=== PATIENT | female | born 1980 | race Caucasian/White ===

== ENCOUNTER 2017-03-21 07:20 | Day surgery (SDC) | payer OTHER ==
[2017-03-21] MEDS ORDERED: MIDAZOLAM INJ 2 MG/2 ML VIAL (J2250) As Ordered (07:47)
[2017-03-21] MEDS ORDERED: fentaNYL 250 MCG/5 ML INJECTION (J3010) As Ordered (07:47)
[2017-03-21] MEDS ORDERED: PROPOFOL 200 MG/20 ML VIAL As Ordered (07:47)
[2017-03-21] MEDS ORDERED: ROCURONIUM BROMIDE 50 MG/5 ML VIAL As Ordered (07:47)
[2017-03-21] MEDS ORDERED: LIDOCAINE 2% INJ 100 MG/5 ML SDV (FOR ANES.) As Ordered (07:47)
[2017-03-21 08:00] LABS: CONTROL LINE UCG INT CTR LINE PRESENT; URINE PREG TEST NEGATIVE (NEGATIVE)
[2017-03-21] MEDS: CEFAZOLIN SOD 1 GM in APPROPRIATE DILUENT 1 EA IV (08:02)
[2017-03-21] MEDS: LR 1,000 ML IV (08:20)
[2017-03-21] MEDS: BUPIVACAINE HCL 0.25% 10 ML VIAL As Ordered (09:04)
[2017-03-21] MEDS: LIDOCAINE W/EPINEPHRINE 1% 20ML VIAL As Ordered (09:04)
[2017-03-21] MEDS ORDERED: dexameTHASONE 4 MG/ML 1ML VIAL (J1100) As Ordered (09:38)
[2017-03-21] MEDS ORDERED: NEOSTIGMINE 10 MG/10 ML VIAL (J2710) As Ordered (09:38)
[2017-03-21] MEDS ORDERED: KETOROLAC 60 MG/2 ML VIAL (J1885) As Ordered (09:38)
[2017-03-21] MEDS ORDERED: ONDANSETRON 4MG/2ML VIAL (J2405) As Ordered (09:38)
[2017-03-21] MEDS ORDERED: METOCLOPRAMIDE INJ 10MG/2ML VIAL (J2765) As Ordered ×2 (09:38→13:23)
[2017-03-21] MEDS ORDERED: GLYCOPYRROLATE INJ 0.2 MG/ML 2 ML VIAL As Ordered (09:38)
[2017-03-21] MEDS ORDERED: fentaNYL 100 MCG/2 ML INJECTION (J3010) As Ordered (10:00)
[2017-03-21] MEDS: ONDANSETRON 4MG/2ML VIAL (J2405) IV (10:40)
[2017-03-21] MEDS ORDERED: ONDANSETRON 4MG/2ML VIAL (J2405) IV (10:45)
[2017-03-21] MEDS ORDERED: fentaNYL 100 MCG/2 ML INJECTION (J3010) IV (10:45)
[2017-03-21] MEDS ORDERED: NORCO, ANEXSIA 5/325MG TABLET (HYDROcodone/ACETAMINOPHEN) PO (10:45)
[2017-03-21] MEDS ORDERED: LR 1,000 ML IV ×2 (10:45)
[2017-03-21] MEDS ORDERED: MORPHINE 2 MG/ML 1ML SYRINGE IV (10:45)
[2017-03-21] MEDS: HYDROmorphone HCL 1 MG/ML SYRINGE (J1170) IV ×2 (10:55→11:00)
[2017-03-21] MEDS: PERCOCET 5MG/325MG TAB PO (11:15)
[2017-03-21] MEDS: METOCLOPRAMIDE INJ 10MG/2ML VIAL (J2765) IV (13:23)
[2017-03-21] MEDS ORDERED: SCOPOLAMINE 1MG TRANSDERMAL PATCH As Ordered (14:24)
[2017-03-21] MEDS: SCOPOLAMINE 1MG TRANSDERMAL PATCH TOP (14:25)
[2017-03-21] MEDS ORDERED: KETOROLAC 30 MG/ML VIAL (J1885) IV (16:00)
== END 2017-03-21 14:50 | disposition home or self-care (01) ==
LOC: M SDC 07:20
DX: K81.1 Chronic cholecystitis (principal); K29.60 Other gastritis without bleeding; K21.9 Gastro-esophageal reflux disease without esophagitis; Z79.899 Other long term (current) drug therapy; Z87.891 Personal history of nicotine dependence
CPT/HCPCS: 47562

== ENCOUNTER → 2018-01-02 | Outpatient (REF) | payer OTHER | LOC: M SFHCLERA 10:59 | DX: J02.9 Acute pharyngitis, unspecified (principal) ==

== ENCOUNTER → 2021-01-27 | Outpatient (REF) ==
[~2021-01-27] MED LIST: OMEP10CASR PO; RANI300C PO
[2021-01-27 14:31] LABS: RSV AMPLIFICATION NEGATIVE (NEGATIVE)
== END ==
LOC: M LABSMTC 11:51
PROVIDERS: ATTEND Family Medicine
DX: Z20.822 Contact with and (suspected) exposure to COVID-19 (principal)

== ENCOUNTER → 2021-07-20 | Outpatient (REF) | LOC: M EMP 08:04 | PROVIDERS: ATTEND Family Medicine | DX: Z20.822 Contact with and (suspected) exposure to COVID-19 (principal); Z11.52 Encounter for screening for COVID-19 ==

== ENCOUNTER → 2022-07-20 | Outpatient (REF) | LOC: M EMP 07:51 | PROVIDERS: ATTEND Family Medicine | DX: Z11.52 Encounter for screening for COVID-19 (principal) ==